=== PATIENT | male | born 1970 | race Caucasian/White ===

== ENCOUNTER 2020-07-03 23:51 | Emergency (ER) | payer SELFPAY ==
--- NOTE | 2020-07-03 23:59 | EDM.PDOC ---
ED HPI GENERAL MEDICAL PROBLEM - General Chief Complaint: Gastrointestinal Problem Stated Complaint: VOMITING Time Seen by Provider: 07/03/20 23:52 Source of Information: Reports: Patient History Limitations: Reports: No Limitations - History of Present Illness INITIAL COMMENTS - FREE TEXT/NARRATIVE: 50-year-old male no past medical history presents for vomiting blood. Patient has been feeling unwell for the last 3 or so days. He has noted a headache, decreased oral intake, decreased appetite. This evening roughly 3 hours prior to arrival he began to experience vomiting and in the last hour or so has had vomiting with blood and coffee ground emesis. He also notes midepigastric abdominal pain. No syncope. No h/o GIB. Never had endoscopy. No h/o abdominal surgeries. Drinks socially but not daily and has not increased EtOH consumption recently. Head Pain Score (Numeric/FACES): 6 - Related Data Allergies Allergy/AdvReac Type Severity Reaction Status Date / Time No Known Allergies Allergy Verified 07/04/20 00:11 Home Meds: Home Meds . [No Known Home Meds] 07/04/20 [History] ED ROS GENERAL - Review of Systems Review Of Systems: Comprehensive ROS is negative, except as noted in HPI. ED EXAM, GENERAL - Physical Exam Exam: See Below Exam Limited By: No Limitations General Appearance: Alert, WD/WN, Other (uncomfortable appearing, vomiting brown colored liquid with coffee ground emesis) Throat/Mouth: Normal Voice, No Airway Compromise Head: Atraumatic, Normocephalic Neck: Normal Inspection Respiratory/Chest: No Respiratory Distress, Lungs Clear, Normal Breath Sounds, No Accessory Muscle Use Cardiovascular: Normal Peripheral Pulses, Tachycardia GI/Abdominal: Soft, Non-Tender Extremities: Normal Inspection Neurological: Alert, Normal Cognition, Normal Gait Psychiatric: Normal Affect, Normal Mood Skin Exam: Warm, Dry, Intact, Normal Color #1 Interpretation EKG Date: 07/04/20 Time: 00:15 Rhythm: NSR Rate (Beats/Min): 124 [place]: Normal P-Wave: Present QRS: Normal ST-T: Normal QT: Normal SD/PQ Interval: 139 Comparison: NA - No Prior EKG EKG Interpretation Comments: sinus tachycardia Course - Vital Signs Last Recorded V/S: Last Vital Signs Temp 98.5 F 07/04/20 00:06 Pulse 119 H 07/04/20 01:25 Resp 14 07/04/20 01:25 BP 148/107 H 07/04/20 01:25 Pulse Ox 96 07/04/20 01:25 - Orders/Labs/Meds Orders: Active Orders 24 hr Category Date Time Status EKG Documentation Completion [RC] STAT Care 07/04/20 00:09 Active INR,PT,PROTHROMBIN TIME [COAG] Stat Lab 07/04/20 00:10 Results PTT,PARTIAL THROMBOPLSTIN TIME [COAG] Stat Lab 07/04/20 00:10 Results REFLEX LACTIC ACID YES OR NO [CHEM] Routine Lab 07/04/20 01:05 Received TYPE AND SCREEN [BBK] Stat Lab 07/04/20 00:25 Received Octreotide [SandoSTATIN] 500 mcg Med 07/04/20 01:00 Active Sodium Chloride 0.9% [Normal Saline] 495 ml IV Q10H Pantoprazole [ProTONIX IV] 80 mg Med 07/04/20 00:13 Active Sodium Chloride 0.9% [Normal Saline] 100 ml IV STAT Sodium Chloride 0.9% [Normal Saline] 1,000 ml Med 07/04/20 01:07 Active IV .Bolus Sodium Chloride 0.9% [Saline Flush] Med 07/04/20 00:09 Active 10 ml FLUSH ASDIRECTED PRN Sodium Chloride 0.9% [Saline Flush] Med 07/04/20 00:09 Active 2.5 ml FLUSH ASDIRECTED PRN Saline Lock Insert [OM.PC] Stat Oth 07/04/20 00:09 Ordered Medication Orders Pantoprazole Sodium 80 mg/ (Sodium Chloride) 100 mls @ 10 mls/hr IV STAT STA Stop: 07/04/20 10:12 Last Admin: 07/04/20 01:01 Dose: 8 mg/hr, 10 mls/hr Documented by: TRENTON Octreotide Acetate 500 mcg/ (Sodium Chloride) 500 mls @ 50 mls/hr IV Q10H CHRIST Sodium Chloride (Normal Saline) 1,000 mls @ 999 mls/hr IV .Bolus ONE Stop: 07/04/20 02:07 Sodium Chloride (Sodium Chloride 0.9% 10 Ml Syringe) 10 ml FLUSH ASDIRECTED PRN PRN Reason: Keep Vein Open Sodium Chloride (Sodium Chloride 0.9% 2.5 Ml Syringe) 2.5 ml FLUSH ASDIRECTED PRN PRN Reason: Keep Vein Open Labs: Laboratory Tests 07/04/20 07/04/20 07/04/20 Range/Units 00:10 00:10 00:10 WBC 5.70 (4.0-11.0) K/uL RBC 5.15 (4.50-5.90) M/uL Hgb 17.8 H (13.0-17.0) g/dL Hct 53.3 H (38.0-50.0) % MCV 103.5 H (80.0-98.0) fL MCH 34.6 H (27.0-32.0) pg MCHC 33.4 (31.0-37.0) g/dL RDW Std Deviation 58.2 (28.0-62.0) fl RDW Coeff of Dewey 16 H (11.0-15.0) % Plt Count 160 (150-400) K/uL MPV 10.50 (7.40-12.00) fL Neut % (Auto) 58.8 (48.0-80.0) % Lymph % (Auto) 32.1 (16.0-40.0) % [place] % (Auto) 8.2 (0.0-15.0) % Eos % (Auto) 0.4 (0.0-7.0) % Baso % (Auto) 0.5 (0.0-1.5) % Neut # (Auto) 3.4 (1.4-5.7) K/uL Lymph # (Auto) 1.8 (0.6-2.4) K/uL [place] # (Auto) 0.5 (0.0-0.8) K/uL Eos # (Auto) 0.0 (0.0-0.7) K/uL Baso # (Auto) 0.0 (0.0-0.1) K/uL Nucleated RBC % 0.0 /100WBC Nucleated RBCs # 0 K/uL INR 1.04 VBG pH (7.31-7.41) VBG pCO2 (41-51) mmHG VBG pO2 mmHG VBG HCO3 (23-28) mEq/L VBG Total CO2 (24-29) mmol/L VBG Base Excess (-2.0-3.0) Sodium 137 (136-148) mmol/L Potassium 4.5 (3.5-5.1) mmol/L Chloride 94 L (98-107) mmol/L Carbon Dioxide 10.2 L (21.0-32.0) mmol/L BUN 15 (7.0-18.0) mg/dL Creatinine 1.2 (0.8-1.3) mg/dL Est Cr Clr Drug Dosing 84.15 mL/min Estimated GFR (MDRD) > 60.0 ml/min Glucose 127 H (74-106) mg/dL Lactic Acid (0.4-2.0) mmol/L Calcium 9.0 (8.5-10.1) mg/dL Magnesium 1.8 (1.8-2.4) mg/dL Total Bilirubin 0.9 (0.2-1.0) mg/dL AST 334 H (15-37) IU/L ALT 250 H (14-63) IU/L Alkaline Phosphatase 82 (46-116) U/L Troponin I < 0.050 (0.000-0.056) ng/mL Total Protein 9.4 H (6.4-8.2) g/dL Albumin 4.5 (3.4-5.0) g/dL Globulin 4.9 H (2.6-4.0) g/dL Albumin/Globulin Ratio 0.9 (0.9-1.6) Lipase 272 (73-393) U/L Ethyl Alcohol 99 mg/dL SARS-CoV-2 RNA (SILVANO) (NEGATIVE) 07/04/20 07/04/20 07/04/20 Range/Units 00:25 00:40 01:15 WBC (4.0-11.0) K/uL RBC (4.50-5.90) M/uL Hgb (13.0-17.0) g/dL Hct (38.0-50.0) % MCV (80.0-98.0) fL MCH (27.0-32.0) pg MCHC (31.0-37.0) g/dL RDW Std Deviation (28.0-62.0) fl RDW Coeff of Dewey (11.0-15.0) % Plt Count (150-400) K/uL MPV (7.40-12.00) fL Neut % (Auto) (48.0-80.0) % Lymph % (Auto) (16.0-40.0) % [place] % (Auto) (0.0-15.0) % Eos % (Auto) (0.0-7.0) % Baso % (Auto) (0.0-1.5) % Neut # (Auto) (1.4-5.7) K/uL Lymph # (Auto) (0.6-2.4) K/uL [place] # (Auto) (0.0-0.8) K/uL Eos # (Auto) (0.0-0.7) K/uL Baso # (Auto) (0.0-0.1) K/uL Nucleated RBC % /100WBC Nucleated RBCs # K/uL INR VBG pH 7.26 L (7.31-7.41) VBG pCO2 23 L (41-51) mmHG VBG pO2 79 mmHG VBG HCO3 10 L (23-28) mEq/L VBG Total CO2 9 L (24-29) mmol/L VBG Base Excess -14.5 L (-2.0-3.0) Sodium (136-148) mmol/L Potassium (3.5-5.1) mmol/L Chloride (98-107) mmol/L Carbon Dioxide (21.0-32.0) mmol/L BUN (7.0-18.0) mg/dL Creatinine (0.8-1.3) mg/dL Est Cr Clr Drug Dosing mL/min Estimated GFR (MDRD) ml/min Glucose (74-106) mg/dL Lactic Acid 8.0 H* (0.4-2.0) mmol/L Calcium (8.5-10.1) mg/dL Magnesium (1.8-2.4) mg/dL Total Bilirubin (0.2-1.0) mg/dL AST (15-37) IU/L ALT (14-63) IU/L Alkaline Phosphatase (46-116) U/L Troponin I (0.000-0.056) ng/mL Total Protein (6.4-8.2) g/dL Albumin (3.4-5.0) g/dL Globulin (2.6-4.0) g/dL Albumin/Globulin Ratio (0.9-1.6) Lipase (73-393) U/L Ethyl Alcohol mg/dL SARS-CoV-2 RNA (SILVANO) NEGATIVE (NEGATIVE) Meds: Medications Generic Name Dose Route Start Last Admin Trade Name Dangelo PRN Reason Stop Dose Admin Pantoprazole Sodium 80 mg/ 100 mls @ 10 mls/hr 07/04/20 00:13 07/04/20 01:01 Sodium Chloride IV 07/04/20 10:12 8 mg/hr STAT STA 10 mls/hr Administration 8 MG/HR Octreotide Acetate 500 mcg/ 500 mls @ 50 mls/hr 07/04/20 01:00 Sodium Chloride IV Q10H CHRIST 50 MCG/HR Sodium Chloride 1,000 mls @ 999 mls/hr 07/04/20 01:07 Normal Saline IV 07/04/20 02:07 .Bolus ONE Sodium Chloride 10 ml 07/04/20 00:09 Sodium Chloride 0.9% 10 Ml Syringe FLUSH ASDIRECTED PRN Keep Vein Open Sodium Chloride 2.5 ml 07/04/20 00:09 Sodium Chloride 0.9% 2.5 Ml Syringe FLUSH ASDIRECTED PRN Keep Vein Open Discontinued Medications Generic Name Dose Route Start Last Admin Trade Name Dangelo PRN Reason Stop Dose Admin Ceftriaxone Sodium 1 gm 07/04/20 00:16 07/04/20 01:03 Ceftriaxone 1 Gm Vial IVPUSH 07/04/20 00:17 1 gm ONETIME ONE Administration Sodium Chloride 1,000 mls @ 999 mls/hr 07/04/20 00:09 07/04/20 00:24 Normal Saline IV 07/04/20 01:09 999 mls/hr .Bolus ONE Administration Pantoprazole Sodium 80 mg/ 20 mls @ 420 mls/hr 07/04/20 00:11 07/04/20 00:25 Sodium Chloride IVPUSH 07/04/20 00:13 420 mls/hr ONETIME ONE Administration Octreotide Acetate 50 mcg 07/04/20 01:00 Octreotide 50 Mcg/1 Ml Amp IV 07/04/20 01:01 ONETIME ONE Ondansetron HCl 8 mg 07/04/20 00:09 07/04/20 00:24 Ondansetron 4 Mg/2 Ml Sdv IVPUSH 07/04/20 00:10 8 mg ONETIME ONE Administration - Re-Assessments/Exams Free Text/Narrative Re-Assessment/Exam: 07/04/20 01:05 Labs remarkable for transaminitis, metabolic acidosis, lactate of 8.0, etoh of 99. I explained lab results to patient and need for transfer for endoscopy; he is agreeable. 07/04/20 01:27 Spoke with the ED physician Dr. Day at [facility] in [place] who agrees to accept the transfer. Departure - Departure Time of Disposition: 01:27 Disposition: DC/Tfer to Acute Hospital 02 Condition: Serious Clinical Impression: UGIB (upper gastrointestinal bleed) - Discharge Information Referrals: PCP,None [Primary Care Provider] - Forms: ED Department Discharge Critical Care Note - Critical Care Note Total Time (mins): 35 Sepsis Event Note (ED) - Focused Exam Vital Signs: Vital Signs Temp Pulse Resp BP Pulse Ox 07/04/20 01:25 119 H 14 148/107 H 96 07/04/20 00:06 98.5 F 145 H 18 130/103 H 96 - My Orders Last 24 Hours: My Active Orders 07/04/20 00:09 EKG Documentation Completion [RC] STAT Sodium Chloride 0.9% [Saline Flush] 10 ml FLUSH ASDIRECTED PRN Sodium Chloride 0.9% [Saline Flush] 2.5 ml FLUSH ASDIRECTED PRN Saline Lock Insert [OM.PC] Stat 07/04/20 00:10 INR,PT,PROTHROMBIN TIME [COAG] Stat PTT,PARTIAL THROMBOPLSTIN TIME [COAG] Stat 07/04/20 00:13 Pantoprazole [ProTONIX IV] 80 mg Sodium Chloride 0.9% [Normal Saline] 100 ml IV STAT 07/04/20 00:25 TYPE AND SCREEN [BBK] Stat 07/04/20 01:00 Octreotide [SandoSTATIN] 500 mcg Sodium Chloride 0.9% [Normal Saline] 495 ml IV Q10H 07/04/20 01:05 REFLEX LACTIC ACID YES OR NO [CHEM] Routine 07/04/20 01:07 Sodium Chloride 0.9% [Normal Saline] 1,000 ml IV .Bolus - Assessment/Plan Last 24 Hours: My Active Orders 07/04/20 00:09 EKG Documentation Completion [RC] STAT Sodium Chloride 0.9% [Saline Flush] 10 ml FLUSH ASDIRECTED PRN Sodium Chloride 0.9% [Saline Flush] 2.5 ml FLUSH ASDIRECTED PRN Saline Lock Insert [OM.PC] Stat 07/04/20 00:10 INR,PT,PROTHROMBIN TIME [COAG] Stat PTT,PARTIAL THROMBOPLSTIN TIME [COAG] Stat 07/04/20 00:13 Pantoprazole [ProTONIX IV] 80 mg Sodium Chloride 0.9% [Normal Saline] 100 ml IV STAT 07/04/20 00:25 TYPE AND SCREEN [BBK] Stat 07/04/20 01:00 Octreotide [SandoSTATIN] 500 mcg Sodium Chloride 0.9% [Normal Saline] 495 ml IV Q10H 07/04/20 01:05 REFLEX LACTIC ACID YES OR NO [CHEM] Routine 07/04/20 01:07 Sodium Chloride 0.9% [Normal Saline] 1,000 ml IV .Bolus
[2020-07-04] MEDS ORDERED: Sodium Chloride 0.9% 10 ML Syringe FLUSH PRN (00:09)
[2020-07-04] MEDS ORDERED: Ondansetron 4 MG/2 ML SDV IVPUSH ONE ×2 (00:09→01:50)
[2020-07-04] MEDS ORDERED: Sodium Chloride 0.9% 2.5 ML Syringe FLUSH PRN (00:09)
[2020-07-04] MEDS ORDERED: Sodium Chloride 0.9% 1,000 ML IV ONE ×2 (00:09→01:07)
[2020-07-04] MEDS ORDERED: Pantoprazole 80 MG in Sodium Chloride 0.9% 20 ML IVPUSH ONE (00:11)
[2020-07-04] MEDS ORDERED: Pantoprazole 80 MG in Sodium Chloride 0.9% 100 ML IV STA (00:13)
[2020-07-04] MEDS ORDERED: cefTRIAXone 1 GM Vial IVPUSH ONE (00:16)
--- NOTE | 2020-07-04 00:45 | CR ---
INDICATION: Hematemesis TECHNIQUE: Portable upright AP view of the chest COMPARISON: None FINDINGS: The lungs are clear. There is no sizable pleural effusion or pneumothorax. The cardiomediastinal silhouette is normal. The visualized osseous structures are unremarkable. IMPRESSION: No acute intrathoracic process. Dictated by Laura Sloan MD @ 07/04/2020 12:42:[address] Laura Sloan @ Jul 04 2020 12:42AM
[2020-07-04 00:53] LABS: BLOOD UREA NITROGEN,BUN 15 mg/dL (7.0-18.0); CARBON DIOXIDE,CO2 10.2 mmol/L (21.0-32.0); CHLORIDE,CL 94 mmol/L (98-107); GLUCOSE RANDOM 127 mg/dL (74-106); LIPASE 272 U/L (73-393); POTASSIUM,K 4.5 mmol/L (3.5-5.1); SODIUM,NA 137 mmol/L (136-148)
[2020-07-04] MEDS ORDERED: Octreotide 500 MCG in Sodium Chloride 0.9% 495 ML IV SCH (01:00)
[2020-07-04] MEDS ORDERED: Octreotide 50 MCG/1 ML Amp IV ONE (01:00)
[2020-07-04] MEDS ORDERED: Morphine 4 MG/ML Syringe IVPUSH ONE (02:16)
== END 2020-07-04 03:20 ==
LOC: MW.ED 23:51
DX: K92.2 Gastrointestinal hemorrhage, unspecified (principal); Z20.822 Contact with and (suspected) exposure to COVID-19
CPT/HCPCS: 36415; 71045; 80053; 80307; 82803; 83605; 83690; 83735; 84484; 85025; 85610; 85730; 86850; 86900; 86901; 87635; 96365; 96366; 96374; 96375; 96376; 99285; C9113; J0696; J2270; J2354; J2405; J7030; J7040; 99291; U0002